=== PATIENT | male | born 1955 | race Caucasian/White ===

== ENCOUNTER 2024-03-16 07:24 | Day surgery (SDC) | payer BC, MEDICARE ==
[~2024-03-16] VITALS: Ht 177.8 cm; Wt 136.7 kg
[2024-03-16] VITALS (7 sets, daily range): BP systolic 111–138; BP diastolic 38–52; PULSE 52–66; RESP 12–16; TEMP 97.4; O2SAT 94–100
[2024-03-16] MEDS ORDERED: Cefazolin 3 GM/100ML NS IVPB 100 ML IV ONE (08:15)
[2024-03-16] MEDS ORDERED: GABA300C PO (08:48)
[2024-03-16] MEDS ORDERED: ATOR40TA72 PO (08:48)
[2024-03-16] MEDS ORDERED: LIDO35.4 TOP (08:48)
[2024-03-16] MEDS ORDERED: IRBE300T26 PO (08:48)
[2024-03-16] MEDS ORDERED: ASPI-611 PO (08:48)
[2024-03-16] MEDS ORDERED: DULO60CA65 PO (08:48)
[2024-03-16] MEDS ORDERED: TOPI200T16 PO (08:48)
[2024-03-16] MEDS ORDERED: LEVO50TA8 PO (08:48)
[2024-03-16] MEDS ORDERED: FURO40TA4 PO (08:48)
[2024-03-16] MEDS ORDERED: METF-438 PO (08:48)
[2024-03-16] MEDS ORDERED: OMEP40CA21 PO (08:48)
[2024-03-16] MEDS ORDERED: AMLO5TAB16 PO (08:48)
[2024-03-16] MEDS ORDERED: GLIM2TAB6 PO (08:48)
[2024-03-16] MEDS ORDERED: CELE-148 PO (08:48)
[2024-03-16] MEDS ORDERED: SEMA2PEN SQ (08:48)
[2024-03-16] MEDS ORDERED: POTA8CAP20 PO (08:48)
[2024-03-16] MEDS ORDERED: FLO0.4C PO (08:48)
[2024-03-16] MEDS: VANCOMYCIN 1,500MG in normal saline IV soln 300 ML IV ONE (09:03)
[2024-03-16 09:05] LABS: ALBUMIN 3.3 G/DL (3.4-5.0); ANION GAP 10 (8-16); BASOPHILS # (AUTO) 0.1 X10'3 (0-0.2); BASOPHILS % (AUTO) 1.3 % (0-1); BLOOD UREA NITROGEN 28 MG/DL (7-18); BUN/CREATININE RATIO 19.3 (10.0-20.0); CHLORIDE 107 MMOL/L (99-107); CREATININE 1.45 MG/DL (0.60-1.10); EOSINOPHILS # (AUTO) 0.2 X10'3 (0-0.9); EOSINOPHILS % (AUTO) 3.4 % (0-6); GLUCOSE 144 MG/DL (70-104); HEMATOCRIT 38.4 % (42.0-52.0); HEMOGLOBIN 12.4 g/dl (14.0-17.9); LYMPHOCYTES # (AUTO) 1.7 X10'3 (1.1-4.8); LYMPHOCYTES % (AUTO) 25.6 % (21-51); MAGNESIUM 1.8 MG/DL (1.5-2.4); MEAN CORPUSCULAR HEMOGLOBIN 31.1 PG (27.0-31.0); MEAN CORPUSCULAR HGB CONC 32.3 g/dL (33.0-36.5); MEAN CORPUSCULAR VOLUME 96.3 FL (78-98); MEAN PLATELET VOLUME 10.1 FL (7.4-10.4); MONOCYTES # (AUTO) 0.6 X10'3 (0-0.9); MONOCYTES % (AUTO) 9.3 % (2-12); NEUTROPHILS % (AUTO) 60.4 % (42-75); PLATELET COUNT 216 X10'3 (140-440); POTASSIUM 3.9 MMOL/L (3.5-5.1); RED BLOOD COUNT 3.98 X10'6 (4.70-6.10); RED CELL DISTRIBUTION WIDTH 13.5 % (11.5-14.5); SODIUM 141 MMOL/L (135-145); WHITE BLOOD COUNT 6.6 X10'3 (4.5-11.0); eCRCL 50 ML/MIN; eGFR 48 ML/MIN
[2024-03-16 09:07] LABS: PROTHROMBIN TIME 10.5 SECONDS (9.0-12.0)
[2024-03-16] MEDS ORDERED: fentaNYL/PF 50MCG/1 ML 2ML syringe ONE (10:54)
[2024-03-16] MEDS ORDERED: midazolam 1 mg/ML 2ml injection ONE ×2 (10:54→11:35)
[2024-03-16] MEDS ORDERED: LIDOcaine 1% W/epiNEPHrine 1:100,000 20ml vial ONE (10:55)
[2024-03-16] MEDS ORDERED: vancomycin 1,000mg inj ONE (10:55)
[2024-03-16] MEDS ORDERED: HYDROcodone/acetaminophen 10/325mg tab PO PRN (12:55)
[2024-03-16] MEDS ORDERED: HYDROcodone/acetaminophen 5mg/325mg tablet PO PRN (12:55)
[2024-03-16] MEDS ORDERED: normal saline 1000ml 400 ML IV SCH (13:00)
== END 2024-03-16 14:30 | disposition home or self-care (01) ==
LOC: SSTAY O 07:24
PROVIDERS: ATTEND Internal Medicine Cardiovascular Disease
DX: I49.5 Sick sinus syndrome (principal); I10 Essential (primary) hypertension; E78.5 Hyperlipidemia, unspecified; E11.9 Type 2 diabetes mellitus without complications; I50.32 Chronic diastolic (congestive) heart failure; G47.30 Sleep apnea, unspecified; E66.01 Morbid (severe) obesity due to excess calories; E03.9 Hypothyroidism, unspecified; Z79.899 Other long term (current) drug therapy; Z68.41 Body mass index [BMI] 40.0-44.9, adult; Z98.890 Other specified postprocedural states
CPT/HCPCS: 33208; 36415; 71045; 80048; 82948; 83735; 85025; 85610; 93005; 99152; 99153; C1785; C1898; J2250; J3010; J3370; J3490; J7030; J7040; A6258